=== PATIENT | male | born 1970 | race Caucasian/White ===

== ENCOUNTER → 2018-01-30 | Outpatient (CLI) | payer BC ==
[~2018-01-30] MED LIST: CIPR-225 PO; HYDR-3870 PO; HYDROCODONE; OMEP20TA7 PO; TAMS0.4C98 PO
--- NOTE | 2018-01-30 13:11 | Diagnostic Imaging Report ---
INDICATION: Ureteral calculus. Pain. COMPARISON: None. FINDINGS: Two supine radiographic views of the abdomen were obtained. There is 9 mm extraosseous calcification projecting over the right sacral ala and the expected location of the distal right ureter. Multiple other additional extraosseous calcifications are seen projecting over the lower pelvis bilaterally and may be on the basis of phleboliths, although additional renal collecting system calculi cannot be excluded. Multiple surgical clips are noted in the right lower abdominal quadrant. Small bowel loops are nondistended. There is no large collection of free intraperitoneal air. IMPRESSION: 1. Possible 9 mm calculus within the distal right ureter. 2. Likely additional bilateral pelvic phleboliths. Additional distal ureteral calculi cannot be entirely excluded. Dictated by: Dictated on workstation # [id number]
== END ==
LOC: RAD 11:01
PROVIDERS: ATTEND Urology
DX: N20.1 Calculus of ureter (principal)
CPT/HCPCS: 74018

== ENCOUNTER 2018-01-31 12:09 | Outpatient (CLI) | payer BC ==
[~2018-01-31] VITALS: Ht 193 cm; Wt 131.5 kg
[2018-01-31] MEDS ORDERED: OMEP20TA7 PO (14:08)
[2018-02-01] MEDS ORDERED: HYDROCODONE (10:35)
[2018-02-01] MEDS ORDERED: TAMS0.4C98 PO (12:51)
[2018-02-01] MEDS ORDERED: HYDR-3870 PO (12:51)
[2018-02-01] MEDS ORDERED: CIPR-225 PO (12:51)
== END 2018-01-31 14:13 | disposition home or self-care (01) ==
LOC: PREOP 12:09
PROVIDERS: ATTEND Urology
DX: Z01.818 Encounter for other preprocedural examination (principal)

== ENCOUNTER 2018-02-01 09:17 | Day surgery (SDC) | payer BC ==
[~2018-02-01] VITALS: Ht 193 cm; Wt 131.5 kg
[~2018-02-01 09:17] MED LIST changes: -CIPR-225 PO; -HYDR-3870 PO; -HYDROCODONE; -TAMS0.4C98 PO
[2018-02-01 09:30] VITALS: BP 138/95
[2018-02-01] MEDS ORDERED: LACTATED RINGERS 1,000 ML IV PRN (09:37)
[2018-02-01] MEDS ORDERED: cefTRIAXone FOR IV USE 1,000 MG in NS (IVPB) 50 ML IV ONE (09:45)
[2018-02-01] MEDS ORDERED: CATHETER FLUSH 10 ML SYR IV PRN (10:00)
--- NOTE | 2018-02-01 10:06 | Progress Note-Pre Operative ---
Pre-Operative Progress Note H&P Reviewed The H&P was reviewed, patient examined and no changes noted. Date Seen by Provider: Feb 01, 2018 Time Seen by Provider: 10:05 Date H&P Reviewed: Feb 01, 2018 Time H&P Reviewed: 10:05 Pre-Operative Diagnosis: RT DISTAL URETERAL STONE TERRY DUARTE MD Feb 01, 2018 10:06
--- NOTE | 2018-02-01 10:13 | Progress Note-Post Operative ---
Post-Operative Progess Note Surgeon (s)/Regional Transportation Manager (s) Surgeon TERRY DUARTE MD Regional Transportation Manager: NONE Pre-Operative Diagnosis RT DISTAL URETERAL STONE Post-Operative Diagnosis SAME Procedure & Operative Findings Date of Procedure 02/01/18 Procedure Performed/Findings RT URETEROSCOPY WITH STONE LITHOTRIPSY Anesthesia Type GENERAL Estimated Blood Loss Estimated blood loss (mL): NONE Specimens/Packing Specimens Removed NONE Packing: NONE TERRY DUARTE MD Feb 01, 2018 10:13
--- NOTE | 2018-02-01 10:15 | Discharge Inst-Urology ---
Discharge Inst-Urology Discharge Medications New, Converted, or Re-newed RX: RX on Chart Patient Instructions/Follow Up Plan Please make appointment to been seen in office in 2 weeks. KUB prior to it. KUB on way home Increase oral fluids for 48 hours and then as needed. Diet and Activity as tolerated. If questions or concerns contact your physician Or seek help at emergency department. TERRY DUARTE MD Feb 01, 2018 10:14
--- NOTE | 2018-02-01 10:18 | Diagnostic Imaging Report ---
Indication: Status post lithotripsy on the right. Time of exam: 10:05 AM Correlation is made with prior exam from 01/30/2018. There continues to be a calcific density overlying the right sacral ala measuring approximately 9 mm in size. Numerous pelvic calcifications appear stable. No definite renal calcifications are seen. Bowel gas pattern is unremarkable. There are surgical clips in the right lower quadrant. Impression: Stable calcification projected over the right sacrum when compared with exam 2 days earlier. Dictated by: Dictated on workstation # [id number]
[2018-02-01] MEDS ORDERED: LIDOCAINE PF 2% 5 ML (XYLOCAINE) VIAL ONE (10:27)
[2018-02-01] MEDS ORDERED: MIDAZOLAM 2 MG/2 ML (VERSED) VIAL ONE (10:27)
[2018-02-01] MEDS ORDERED: fentaNYL INJECTION 100 MCG/2 ML AMP ONE (10:27)
[2018-02-01] MEDS ORDERED: proPOfol 200 MG/20 ML (DIPRIVAN) VIAL IV ONE (10:27)
[2018-02-01] MEDS ORDERED: ONDANSETRON 4 MG/2 ML (SDV) Z0FRAN ONE ×2 (10:33→11:48)
[2018-02-01] MEDS ORDERED: DEXAMETHASONE 10 MG/ML (DECADRON) 1 ML VIAL ONE (10:33)
[2018-02-01] MEDS ORDERED: SEVOFLURANE (ULTANE) 15 ML INHAL SOLN ONE ×3 (10:33→10:56)
[2018-02-01] MEDS ORDERED: HYDROCODONE (10:35)
[2018-02-01] MEDS ORDERED: ROCURONIUM 10 MG/ML 5 ML SYRINGE IV ONE (10:49)
[2018-02-01] MEDS ORDERED: NEOSTIGMINE 1 MG/ML 5 ML SYRINGE ONE (11:31)
[2018-02-01] MEDS ORDERED: GLYCOPYRROLATE 0.2 MG/ML (ROBINUL) 2 ML VIAL ONE (11:31)
[2018-02-01] MEDS ORDERED: morphine INJ 10 MG/ML 1ML (SYR OR VIAL) IVP ONE (11:45)
[2018-02-01] MEDS ORDERED: ONDANSETRON 4 MG/2 ML (SDV) Z0FRAN IVP PRN (11:45)
[2018-02-01] MEDS ORDERED: morphine INJ 10 MG/ML 1ML (SYR OR VIAL) ONE (11:48)
[2018-02-01 12:30] VITALS: BP 121/89
[2018-02-01] MEDS ORDERED: TAMS0.4C98 PO (12:51)
[2018-02-01] MEDS ORDERED: CIPR-225 PO (12:51)
[2018-02-01] MEDS ORDERED: HYDR-3870 PO (12:51)
[2018-02-01 13:00] VITALS: BP 130/94
[2018-02-01 13:30] VITALS: BP 132/89
[2018-02-01 13:40] VITALS: BP 132/89
--- NOTE | 2018-02-01 13:45 | Anesthesia-General Post-Op ---
General Patient Condition Mental Status/LOC: Same as Preop Cardiovascular: Satisfactory Nausea/Vomiting: Absent Respiratory: Satisfactory Pain: Controlled Complications: Absent Post Op Complications Complications None Follow Up Care/Instructions Patient Instructions None needed. Anesthesia/Patient Condition Patient Condition Patient is doing well, no complaints, stable vital signs, no apparent adverse anesthesia problems. MODESTA FRAGOSO DO Feb 01, 2018 13:45
--- NOTE | 2018-02-01 13:49 | OPERATIVE REPORT ---
DATE OF SERVICE: 02/01/2018 PREOPERATIVE DIAGNOSIS: Right mid-distal ureteral stone. POSTOPERATIVE DIAGNOSIS: Right mid-distal ureteral stone. OPERATION PERFORMED: Right ureteroscopy with stone lithotripsy. SURGEON: Anshu Duarte MD. ANESTHESIA: General. COMPLICATIONS: None. DESCRIPTION OF PROCEDURE: Under satisfactory general anesthesia, the patient in lithotomy position, genitalia were prepped and draped in the usual sterile fashion. Cystoscope was introduced in the bladder. The anterior urethra was normal. The prostate revealed some enlargement with the median bar. The bladder was inspected, revealed mild trabeculation. Ureteric orifices were normal in shape, size and configuration with clear efflux, sluggish on the right side. Using the foroblique lens, I dilated the right ureteric orifice intramural portion to accommodate a 6.9-Thai semi-rigid ureteroscope. I went up to the stone that was present in the mid ureter, pretty good size stone and started performing lithotripsy first using a power of 5 in order to not to lose the stone, then 12. I had to change the stone the kidney. All the fragments were broken up completely. There were no significant fragments at all. There was no harm to the ureter. I removed the ureteroscope, reinserted the cystoscope to empty the bladder. The patient tolerated the procedure and anesthesia well and was sent to the recovery room in stable condition. Job ID: [id number] DocumentID: [id number] Dictated Date: 02/01/2018 11:28:50 Sausage Canner Date: 02/01/2018 13:48:47 Dictated By: ANSHU DUARTE MD
--- NOTE | 2018-02-01 15:04 | Diagnostic Imaging Report ---
INDICATION: Follow up lithotripsy. COMPARISON: 02/01/2018. FINDINGS: Two supine radiographic views of the abdomen were obtained. The 9 mm calculus identified within the distal right ureter on prior study now appears fragmented. Multiple smaller calcifications are now noted in this same area. Multiple pelvic phleboliths are also again identified. Note is also made of small extraosseous calcifications projecting over the inferior pole of the right kidney measuring approximately 2 mm. Small bowel loops are nondistended. There is no large collection of free intraperitoneal air. Bony structures show no acute abnormalities. IMPRESSION: 1. Interval fragmentation of calculus within the distal right ureter as described above. 2. Possible nonobstructive right renal calculi versus artifact related to superimposition of debris within the bowel. Dictated by: Dictated on workstation # [id number]
== END 2018-02-01 13:55 | disposition home or self-care (01) ==
LOC: SDC 09:17
PROVIDERS: ATTEND Urology
DX: N20.1 Calculus of ureter (principal); K21.9 Gastro-esophageal reflux disease without esophagitis; F17.210 Nicotine dependence, cigarettes, uncomplicated
CPT/HCPCS: 74018; 87081

== ENCOUNTER → 2021-03-30 | Outpatient (CLI) | payer BC ==
[~2021-03-30] MED LIST changes: +CIPR-225 PO; +HYDR-3870 PO; +HYDROCODONE; +TMSL.4C PO
--- NOTE | 2021-03-30 14:49 | Diagnostic Imaging Report ---
INDICATION: Neck pain. EXAMINATION: Cervical spine. AP and lateral views of the cervical spine are obtained. FINDINGS: The odontoid is intact. Atlantoaxial relationship appears normal. Vertebral body heights and alignment appear normal. Intervertebral disc spaces are unremarkable. The uncovertebral joints are well maintained. IMPRESSION: Negative cervical spine. Dictated by: Dictated on workstation # [id number]
== END ==
LOC: RAD FS 13:57
PROVIDERS: ATTEND Family Medicine
DX: M54.2 Cervicalgia (principal)
CPT/HCPCS: 72040

== ENCOUNTER 2021-05-25 13:05 | Emergency (ER) | payer BC ==
[~2021-05-25] VITALS: Ht 190.5 cm; Wt 143.2 kg
[2021-05-25 14:43] LABS: BILIRUBIN,URINE NEGATIVE (NEGATIVE); CLARITY,URINE TURBID; COLOR,URINE RED; GLUCOSE, URINE (UA) NEGATIVE (NEGATIVE); KETONES,URINE TRACE (NEGATIVE); LEUKOCYTE ESTERASE ,URINE 2+ (NEGATIVE); NITRITE,URINE POSITIVE (NEGATIVE); PH,URINE 7.5 (5-9); PROTEIN,URINE 2+ (NEGATIVE)
[2021-05-25 14:57] LABS: BACTERIA,URINE MODERATE /HPF; RBC,URINE TNTC /HPF; WBC,URINE 50-100 /HPF
[2021-05-25] MEDS ORDERED: NS IV 1000 ML 1,000 ML IV STA (15:49)
--- NOTE | 2021-05-25 15:53 | ED GU-Male ---
General Chief Complaint: - Reproductive Stated Complaint: BLOOD IN URINE Nursing Triage Note: pt reports urinary frequency with blood in urine starting at 0900 today Source: patient Exam Limitations: no limitations History of Present Illness Date Seen by Provider: May 25, 2021 Time Seen by Provider: 15:51 Initial Comments Patient is a 51-year-old male who presents the ED with hematuria. Symptoms started around 9:00. Started having burning with urination after urinating. Frequent urination with passing of blood clots. Urine started to improve after the past 2 urinations. History of kidney stones. Denies any specific flank pain,abdominal pain, vomiting, diarrhea ,fever, chills. Denies any scrotum pain, scrotum swelling, headache, dizziness. Denies history of kidney disease Allergies and Home Medications Allergies Coded Allergies: No Known Drug Allergies (Unverified , 01/31/18) Patient Home Medication List Home Medication List Reviewed: Yes Ciprofloxacin HCl (Cipro) 500 Mg Tablet, 500 MG PO BID Prescribed by: KATHERINE BRYAN on 02/01/18 1251 Ciprofloxacin HCl (Cipro) 500 Mg Tablet, 500 MG PO BID Prescribed by: SALMA MCDONNELL on 05/25/21 1658 Hydrocodone/Acetaminophen (Lorcet 5-325 mg Tablet) 1 Each Tablet, 1-2 EACH PO Q6H PRN for PAIN-MODERATE Prescribed by: KATHERINE BRYAN on 02/01/18 1251 Omeprazole (Omeprazole) 20 Mg Tablet.dr, 20 MG PO DAILY, (Reported) Entered as Reported by: JEAN CLAUDE MART on 01/31/18 1408 Tamsulosin HCl (Flomax) 0.4 Mg Cap, 0.4 MG PO DAILY Prescribed by: KATHERINE BRYAN on 02/01/18 1251 Review of Systems Review of Systems Constitutional: No chills, No diaphoresis, No malaise, No weakness EENTM: No blurred vision, No mouth pain, No mouth swelling Respiratory: No cough, No dyspnea on exertion, No orthopnea, No short of breath Gastrointestinal: No abdominal pain, No diarrhea, No nausea, No vomiting Genitourinary: burning, frequency, hematuria Musculoskeletal: No back pain, No joint pain Skin: No change in color, No change in hair/nails All Other Systemes Reviewed Negative Unless Noted: Yes Past Vhgaxtc-Pgryue-Fiwkph Hx Seasonal Allergies Seasonal Allergies: No Past Medical History Appendectomy, Tonsillectomy Reproductive Disorders: No Sexually Transmitted Disease: No HIV/AIDS: No Kidney Stones Loss of Vision: Bilateral Hearing Impairment: Denies Adverse Reaction/Blood Tranf: No (N/A) Physical Exam Vital Signs Vital Signs - First Documented 05/25/21 14:30 Temp 36.4 Pulse 81 Resp 16 B/P (MAP) 137/97 (110) Pulse Ox 98 O2 Delivery Room Air Capillary Refill : Less Than 3 Seconds Height, Weight, BMI Height: 6'4.00" Weight: 290lbs. 0.0oz. [id number]; 39.00 BMI Method: General Appearance: WD/WN, no apparent distress HEENT: PERRL/EOMI, normal ENT inspection, TMs normal, pharynx normal Neck: non-tender, full range of motion, supple, normal inspection Cardiovascular: regular rate, rhythm, no edema, no gallop, no JVD Respiratory: chest non-tender, lungs clear, normal breath sounds, no respiratory distress, no accessory muscle use Gastrointestinal: normal bowel sounds, non tender, soft, no organomegaly Back: normal inspection, no CVA tenderness Extremities: normal range of motion, non-tender, normal inspection, no pedal edema, no calf tenderness Neurologic/Psychiatric: special loan officer II-XII nml as tested, no motor/sensory deficits, al ert, normal mood/affect Progress/Results/Core Measures Suspected Sepsis SIRS Temperature: Pulse: 81 Respiratory Rate: 16 Laboratory Tests 05/25/21 15:58: White Blood Count 15.1H Blood Pressure 137 /97 Mean: 110 Laboratory Tests 05/25/21 15:58: Creatinine 1.11, Platelet Count 261, Total Bilirubin 0.8 Results/Orders Lab Results Laboratory Tests Test 05/25/21 14:30 05/25/21 15:58 Range/Units Urine Color RED H Urine Clarity TURBID Urine pH 7.5 5-9 Urine Specific [place] 1.025 H 1.016-1.022 Urine Protein 2+ H NEGATIVE Urine Glucose (UA) NEGATIVE NEGATIVE Urine Ketones TRACE H NEGATIVE Urine Nitrite POSITIVE H NEGATIVE Urine Bilirubin NEGATIVE NEGATIVE Urine Urobilinogen 1.0 < = 1.0 MG/DL Urine Leukocyte Esterase 2+ H NEGATIVE Urine RBC (Auto) 3+ H NEGATIVE Urine RBC TNTC H /HPF Urine WBC 50-100 H /HPF Urine Crystals NONE /LPF Urine Bacteria MODERATE H /HPF Urine Casts NONE /LPF Urine Mucus NEGATIVE /LPF Urine Culture Indicated YES White Blood Count 15.1 H 4.3-11.0 10^3/uL Red Blood Count 5.26 4.30-5.52 10^6/uL Hemoglobin 16.3 13.3-17.7 g/dL Hematocrit 48 40-54 % Mean Corpuscular Volume 91 80-99 fL Mean Corpuscular Hemoglobin 31 25-34 pg Mean Corpuscular Hemoglobin Concent 34 32-36 g/dL Red Cell Distribution Width 13.8 10.0-14.5 % Platelet Count 261 130-400 10^3/uL Mean Platelet Volume 9.7 9.0-12.2 fL Immature Granulocyte % (Auto) 0 % Neutrophils (%) (Auto) 75 42-75 % Lymphocytes (%) (Auto) 18 12-44 % Monocytes (%) (Auto) 6 0-12 % Eosinophils (%) (Auto) 0 0-10 % Basophils (%) (Auto) 0 0-10 % Neutrophils # (Auto) 11.3 H 1.8-7.8 X 10^3 Lymphocytes # (Auto) 2.7 1.0-4.0 X 10^3 Monocytes # (Auto) 1.0 0.0-1.0 X 10^3 Eosinophils # (Auto) 0.1 0.0-0.3 10^3/uL Basophils # (Auto) 0.0 0.0-0.1 10^3/uL Immature Granulocyte # (Auto) 0.0 0.0-0.1 10^3/uL Neutrophils % (Manual) 76 % Lymphocytes % (Manual) 6 % Monocytes % (Manual) 3 % Eosinophils % (Manual) 0 % Basophils % (Manual) 0 % Band Neutrophils 0 % Reactive Lymphocytes 15 % Blood Morphology Comment NORMAL Sodium Level 135 135-145 MMOL/L Potassium Level 3.9 3.6-5.0 MMOL/L Chloride Level 102 98-107 MMOL/L Carbon Dioxide Level 24 21-32 MMOL/L Anion Gap 9 5-14 MMOL/L Blood Urea Nitrogen 11 7-18 MG/DL Creatinine 1.11 0.60-1.30 MG/DL Estimat Glomerular Filtration Rate 81 BUN/Creatinine Ratio 10 Glucose Level 105 70-105 MG/DL Calcium Level 9.2 8.5-10.1 MG/DL Corrected Calcium 9.0 8.5-10.1 MG/DL Total Bilirubin 0.8 0.1-1.0 MG/DL Aspartate Amino Transf (AST/SGOT) 20 5-34 U/L Alanine Aminotransferase (ALT/SGPT) 27 0-55 U/L Alkaline Phosphatase 74 40-136 U/L Total Protein 7.1 6.4-8.2 GM/DL Albumin 4.2 3.2-4.5 GM/DL Lipase 15 8-78 U/L My Orders Orders - GREY ORO Ua Culture If Indicated (05/25/21 13:42) Urine Culture (05/25/21 14:30) Cbc With Automated Diff (05/25/21 15:49) Comprehensive Metabolic Panel (05/25/21 15:49) Lipase (05/25/21 15:49) Ct Abdomen/Pelvis Wo (05/25/21 15:49) Ns Iv 1000 Ml (Sodium Chloride 0.9%) (05/25/21 15:49) Manual Differential (05/25/21 15:58) Ceftriaxone 1 Gm Pre-Mix (Rocephin 1 Gm (05/25/21 16:16) Vital Signs/I&O 05/25/21 14:30 Temp 36.4 Pulse 81 Resp 16 B/P (MAP) 137/97 (110) Pulse Ox 98 O2 Delivery Room Air Capillary Refill : Less Than 3 Seconds Blood Pressure Mean: 110 Departure Communication (PCP) Slight elevated white blood count. Vital signs stable. Did not meet SIRS criteria. Urinalysis concerning for UTI. Cultures pending. Was given dose of Rocephin and liter fluid. CT abd pelvis negative for nephrolithiasis. No evidence of nephric stranding, ureterolithiasis, obstruction, colitis, mass. Concerning for UTI. Patient was given a dose of Rocephin will discharge with Cipro. not concern for sexual transmitted infection. Patient has no current pain. He states his urine has improved. Denies passing current clots. Patient in no acute distress. Will discharge with Cipro with follow-up with PCP in 2 to 3 days for reevaluation. If any worsening symptoms return back to ED. Impression Primary Impression: Urinary tract infection Disposition: HOME, SELF-CARE Condition: Stable Departure-Patient Inst. Decision time for Depature: 16:57 Referrals: SELFSILAS MD (PCP/Family) Primary Care Physician Patient Instructions: Urinary Tract Infection, Adult (DC) Add. Discharge Instructions: Recheck with your primary care physician in 5 to 6 days with urinalysis. If worsening symptoms return back to ED. All discharge instructions reviewed with patient and/or family. Voiced understanding. Scripts Ciprofloxacin HCl (Cipro) 500 Mg Tablet 500 MG PO BID for 10 Days, #20 TAB Prov: GREY ORO 05/25/21 GREY ORO May 25, 2021 15:53
[2021-05-25 16:09] LABS: BASOPHILS % (AUTO) 0 % (0-10); EOSINOPHILS # (AUTO) 0.1 10^3/uL (0.0-0.3); EOSINOPHILS % (AUTO) 0 % (0-10); HEMATOCRIT 48 % (40-54); HEMOGLOBIN 16.3 g/dL (13.3-17.7); LYMPHOCYTES # (AUTO) 2.7 X 10^3 (1.0-4.0); LYMPHOCYTES % (AUTO) 18 % (12-44); MEAN CORPUSCULAR HEMOGLOBIN 31 pg (25-34); MEAN CORPUSCULAR HGB CONC 34 g/dL (32-36); MEAN CORPUSCULAR VOLUME 91 fL (80-99); MEAN PLATELET VOLUME 9.7 fL (9.0-12.2); MONOCYTES % (AUTO) 6 % (0-12); NEUTROPHILS # (AUTO) 11.3 X 10^3 (1.8-7.8); NEUTROPHILS % (AUTO) 75 % (42-75); PLATELET COUNT 261 10^3/uL (130-400); WHITE BLOOD COUNT 15.1 10^3/uL (4.3-11.0)
[2021-05-25] MEDS ORDERED: cefTRIAXone 1 GM PRE-MIX 50 ML IV STA (16:16)
--- NOTE | 2021-05-25 16:20 | Diagnostic Imaging Report ---
CT ABDOMEN/PELVIS WO TECHNIQUE: Unenhanced CT imaging of the abdomen and pelvis was performed. 2-D reformats are created and submitted for interpretation. Automatic exposure controls were utilized to optimize patient dose. INDICATION: Bilateral flank pain. Blood in urine COMPARISON: None available. FINDINGS: Evaluation of the abdominal viscera is mildly limited without contrast. Lower chest: Bilateral lower lobe 3 mm pulmonary nodules are below size threshold for part follow-up. Peritoneum: No free intraperitoneal air or fluid. Liver and biliary system: Unenhanced liver is normal. The gallbladder is normal. No biliary duct dilation. Spleen and Pancreas: Spleen is normal. Unenhanced pancreas is grossly normal. Adrenals: Normal. tract: No renal or ureteral calculi. No obstructive uropathy. Prostate is not enlarged. Urinary bladder is normally filled without wall thickening. GI tract: Stomach is decompressed. No bowel obstruction. No pericolonic inflammatory changes. Appendectomy. Vasculature and Lymph nodes: Normal caliber aorta. No abdominal or pelvic lymphadenopathy. Musculoskeletal: No concerning osseous lesion. Small fat-containing indirect right inguinal hernia. IMPRESSION: 1. No urinary tract calculi or obstructive uropathy. Dictated by: Dictated on workstation # [id number]
[2021-05-25 16:21] LABS: BAND NEUTROPHILS 0 %; BASOPHILS % (MANUAL) 0 %; EOSINOPHILS % (MANUAL) 0 %; LYMPHOCYTES % (MANUAL) 6 %; MONOCYTES % (MANUAL) 3 %; NEUTROPHILS % (MANUAL) 76 %; REACTIVE LYMPHOCYTES 15 %
[2021-05-25 16:22] LABS: RBC MORPH NORMAL
[2021-05-25 16:25] LABS: ALBUMIN 4.2 GM/DL (3.2-4.5); BILIRUBIN,TOTAL 0.8 MG/DL (0.1-1.0); CALCIUM 9.2 MG/DL (8.5-10.1); CREATININE SERUM 1.11 MG/DL (0.60-1.30); POTASSIUM 3.9 MMOL/L (3.6-5.0); TOTAL PROTEIN 7.1 GM/DL (6.4-8.2)
[2021-05-25] MEDS ORDERED: CIPR-225 PO (16:58)
[2021-05-25 17:30] VITALS: BP 137/99
== END 2021-05-25 17:33 | disposition home or self-care (01) ==
LOC: EDUNIT# 13:05 → ER 13:06
DX: N39.0 Urinary tract infection, site not specified (principal)
CPT/HCPCS: 36415; 74176; 80053; 81000; 83690; 85007; 85027; 87077; 87088; 87186

== ENCOUNTER 2022-07-03 09:54 | Emergency (ER) | payer BC ==
[~2022-07-03] VITALS: Ht 190.5 cm; Wt 142.8 kg
[~2022-07-03 09:54] MED LIST changes: +OMEP20TA56 PO; -OMEP20TA7 PO
[2022-07-03 10:11] LABS: BASOPHILS % (AUTO) 0 % (0-10); EOSINOPHILS # (AUTO) 0.1 10^3/uL (0.0-0.3); EOSINOPHILS % (AUTO) 0 % (0-10); HEMATOCRIT 52 % (40-54); HEMOGLOBIN 18.1 g/dL (13.3-17.7); LYMPHOCYTES # (AUTO) 2.6 10^3/uL (1.0-4.0); LYMPHOCYTES % (AUTO) 23 % (12-44); MEAN CORPUSCULAR HEMOGLOBIN 31 pg (25-34); MEAN CORPUSCULAR HGB CONC 35 g/dL (32-36); MEAN CORPUSCULAR VOLUME 89 fL (80-99); MEAN PLATELET VOLUME 10.2 fL (9.0-12.2); MONOCYTES # (AUTO) 0.6 10^3/uL (0.0-1.0); MONOCYTES % (AUTO) 5 % (0-12); NEUTROPHILS # (AUTO) 7.9 10^3/uL (1.8-7.8); NEUTROPHILS % (AUTO) 71 % (42-75); PLATELET COUNT 272 10^3/uL (130-400); WHITE BLOOD COUNT 11.2 10^3/uL (4.3-11.0)
[2022-07-03] MEDS ORDERED: ASPIRIN 81 MG CHEW (CHILDREN'S ASA) PO ONE (10:15)
[2022-07-03] MEDS ORDERED: NITROGLYCERIN 0.4 MG SL TABS BTL 25'S SL PRN (10:15)
[2022-07-03 10:22] LABS: ALBUMIN 4.5 GM/DL (3.2-4.5); INR 0.9 (0.8-1.4); POTASSIUM 4.3 MMOL/L (3.6-5.0); PROTHROMBIN TIME PATIENT 13.1 SEC (12.2-14.7)
[2022-07-03 10:23] LABS: CALCIUM 9.5 MG/DL (8.5-10.1)
[2022-07-03 10:25] LABS: TOTAL PROTEIN 7.4 GM/DL (6.4-8.2)
[2022-07-03 10:27] LABS: BILIRUBIN,TOTAL 0.4 MG/DL (0.1-1.0)
[2022-07-03 10:28] LABS: CREATININE SERUM 1.43 MG/DL (0.60-1.30)
[2022-07-03 10:31] LABS: MAGNESIUM 2.5 MG/DL (1.6-2.4)
--- NOTE | 2022-07-03 10:31 | Diagnostic Imaging Report ---
INDICATION: Chest pain. FINDINGS: There is cardiomegaly. There is some venous congestion. No pleural effusion or pneumothorax. Mediastinum is unremarkable. IMPRESSION: Cardiomegaly and mild central pulmonary venous congestion. Dictated by: Dictated on workstation # [id number]
--- NOTE | 2022-07-03 12:12 | ED Chest Pain ---
General Chief Complaint: Dizziness/Syncope Stated Complaint: CHEST PAIN Nursing Triage Note: PT AMB TO [facility] 5 WITH COMPLAINT OF DIZZINESS, LIGHTHEADED, NOT FEELING RIGHT. DENIES CP. BUT IS HAVING SOA. STATES SYMPTOMS STARTED WHEN HE WOKE UP. Source: patient, family Exam Limitations: no limitations History of Present Illness Date Seen by Provider: July 03, 2022 Time Seen by Provider: 10:00 Initial Comments This 52-year-old gentleman presents to the emergency room with complaints of lightheadedness, shortness of breath, dysphoric sensation, and a vague chest pressure that began while he was at breakfast. He feels like he could "pass out." He has not experienced any prior episodes. His chest discomfort is described as a very vague pressure but not a pain by his description. He denies any fever, cough, nausea, diarrhea, or other acute symptoms. His significant other reports he was pale while at breakfast and seemed "out of it." He appears neurologically intact during assessment. He has hypertension without any other known cardiopulmonary problems. He recently traveled to [place] to and back by flight. He denies any unusual activity or consumed substances. He drinks 2-3 mixed drinks daily and smokes. He has not had any alcohol yet today. He normally does not drink alcohol in the morning hours. Dr. Hein is his primary care provider. Allergies and Home Medications Allergies Coded Allergies: No Known Drug Allergies (Unverified , 01/31/18) Patient Home Medication List Home Medication List Reviewed: Yes Ciprofloxacin HCl (Cipro) 500 Mg Tablet, 500 MG PO BID Prescribed by: KATHERINE BRYAN on 02/01/18 1251 Ciprofloxacin HCl (Cipro) 500 Mg Tablet, 500 MG PO BID Prescribed by: SALMA MCDONNELL on 05/25/21 1658 Hydrocodone/Acetaminophen (Lorcet 5-325 mg Tablet) 1 Each Tablet, 1-2 EACH PO Q6H PRN for PAIN-MODERATE Prescribed by: KATHERINE BRYAN on 02/01/18 1251 Omeprazole (Omeprazole) 20 Mg Venancio.dr 20 MG PO DAILY, (Reported) Entered as Reported by: JEAN CLAUDE MART on 01/31/18 1408 Tamsulosin HCl (Flomax) 0.4 Mg Cap, 0.4 MG PO DAILY Prescribed by: KATHERINE BRYAN on 02/01/18 1251 Review of Systems Review of Systems Constitutional: no symptoms reported EENTM: No Symptoms Reported Respiratory: See HPI Cardiovascular: See HPI Gastrointestinal: No Symptoms Reported Genitourinary: No Symptoms Reported Musculoskeletal: no symptoms reported Skin: no symptoms reported Psychiatric/Neurological: See HPI Endocrine: No Symptoms Reported Hematologic/Lymphatic: No Symptoms Reported Past Sxpbliu-Lbdcvy-[id number] Hx Patient Social History Tobacco Use?: Yes Tobacco type used: Cigarettes Smoking Status: Current Everyday Smoker Use of E-Cig and/or Vaping dev: No Substance use?: No Alcohol Use?: Yes Alcohol Frequency: Daily Pt feels they are or have been: No Seasonal Allergies Seasonal Allergies: No Past Medical History Surgeries: Yes Appendectomy, Tonsillectomy Respiratory: No Cardiac: Yes Hypertension Neurological: No Reproductive Disorders: No Sexually Transmitted Disease: No HIV/AIDS: No Genitourinary: Yes Kidney Stones Gastrointestinal: No Musculoskeletal: No Endocrine: No HEENT: No Loss of Vision: Bilateral Hearing Impairment: Denies Cancer: No Psychosocial: No Adverse Reaction/Blood Tranf: No (N/A) Physical Exam Vital Signs Vital Signs - First Documented 07/03/22 09:58 Pulse 91 Resp 14 B/P (MAP) 159/108 (125) Pulse Ox 98 O2 Delivery Room Air Capillary Refill : Less Than 3 Seconds Height, Weight, BMI Height: 6'4.00" Weight: 290lbs. 0.0oz. 131.371929qa; 39.00 BMI Method: General Appearance: WD/WN, Obese HEENT: PERRL/EOMI, TMs Normal, Normal ENT Inspection, Pharynx Normal Neck: Normal Inspection; No Carotid Bruit, No JVD Respiratory: Chest Non Tender, Lungs Clear, Normal Breath Sounds, No Accessory Muscle Use Cardiovascular: Regular Rate, Rhythm, No Edema, No Murmur, Normal Peripheral Pulses Gastrointestinal: Normal Bowel Sounds, Non Tender, Soft; No Distended Extremity: Normal Inspection, Non Tender, No Pedal Edema Neurologic/Psychiatric: Oriented x3, No Motor/Sensory Deficits, Normal Mood/Affect Skin: Normal Color, Warm/Dry Progress/Results/Core Measures Results/Orders Lab Results Laboratory Tests Test 07/03/22 10:04 07/03/22 10:12 07/03/22 13:45 07/03/22 13:53 Range/Units White Blood Count 11.2 H 4.3-11.0 10^3/uL Red Blood Count 5.85 H 4.30-5.52 10^6/uL Hemoglobin 18.1 H 13.3-17.7 g/dL Hematocrit 52 40-54 % Mean Corpuscular Volume 89 80-99 fL Mean Corpuscular Hemoglobin 31 25-34 pg Mean Corpuscular Hemoglobin Concent 35 32-36 g/dL Red Cell Distribution Width 13.4 10.0-14.5 % Platelet Count 272 130-400 10^3/uL Mean Platelet Volume 10.2 9.0-12.2 fL Immature Granulocyte % (Auto) 0 % Neutrophils (%) (Auto) 71 42-75 % Lymphocytes (%) (Auto) 23 12-44 % Monocytes (%) (Auto) 5 0-12 % Eosinophils (%) (Auto) 0 0-10 % Basophils (%) (Auto) 0 0-10 % Neutrophils # (Auto) 7.9 H 1.8-7.8 10^3/uL Lymphocytes # (Auto) 2.6 1.0-4.0 10^3/uL Monocytes # (Auto) 0.6 0.0-1.0 10^3/uL Eosinophils # (Auto) 0.1 0.0-0.3 10^3/uL Basophils # (Auto) 0.0 0.0-0.1 10^3/uL Immature Granulocyte # (Auto) 0.0 0.0-0.1 10^3/uL Prothrombin Time 13.1 12.2-14.7 SEC INR Comment 0.9 0.8-1.4 Activated Partial Thromboplast Time 30 24-35 SEC D-Dimer 0.31 0.00-0.49 UG/ML Sodium Level 139 135-145 MMOL/L Potassium Level 4.3 3.6-5.0 MMOL/L Chloride Level 106 98-107 MMOL/L Carbon Dioxide Level 21 21-32 MMOL/L Anion Gap 12 5-14 MMOL/L Blood Urea Nitrogen 16 7-18 MG/DL Creatinine 1.43 H 0.60-1.30 MG/DL Estimat Glomerular Filtration Rate 60 BUN/Creatinine Ratio 11 Glucose Level 167 H 70-105 MG/DL Calcium Level 9.5 8.5-10.1 MG/DL Corrected Calcium 9.1 8.5-10.1 MG/DL Magnesium Level 2.5 H 1.6-2.4 MG/DL Total Bilirubin 0.4 0.1-1.0 MG/DL Aspartate Amino Transf (AST/SGOT) 16 5-34 U/L Alanine Aminotransferase (ALT/SGPT) 23 0-55 U/L Alkaline Phosphatase 85 40-136 U/L Myoglobin 39.4 10.0-92.0 NG/ML Troponin I < 0.028 < 0.028 <0.028 NG/ML C-Reactive Protein High Sensitivity 0.20 0.00-0.50 MG/DL B-Type Natriuretic Peptide < 10.0 <100.0 PG/ML Total Protein 7.4 6.4-8.2 GM/DL Albumin 4.5 3.2-4.5 GM/DL Serum Alcohol < 10 <10 MG/DL Influenza Type A (RT-PCR) Not Detected Not Detecte Influenza Type B (RT-PCR) Not Detected Not Detecte SARS-CoV-2 RNA (RT-PCR) Not Detected Not Detecte Urine Color YELLOW Urine Clarity SL CLOUDY Urine pH 7.5 5-9 Urine Specific [place] 1.010 L 1.016-1.022 Urine Protein NEGATIVE NEGATIVE Urine Glucose (UA) NEGATIVE NEGATIVE Urine Ketones TRACE H NEGATIVE Urine Nitrite NEGATIVE NEGATIVE Urine Bilirubin NEGATIVE NEGATIVE Urine Urobilinogen 1.0 < = 1.0 MG/DL Urine Leukocyte Esterase NEGATIVE NEGATIVE Urine RBC (Auto) NEGATIVE NEGATIVE Urine RBC NONE /HPF Urine WBC RARE /HPF Urine Squamous Epithelial Cells RARE /HPF Urine Crystals PRESENT H /LPF Urine Amorphous Sediment MOD ARCHANA PHOSPHATE H /LPF Urine Bacteria NEGATIVE /HPF Urine Casts NONE /LPF Urine Mucus SMALL H /LPF Urine Culture Indicated NO My Orders Orders - JAEL KLINE MD Ekg Tracing (07/03/22 09:56) Cbc With Automated Diff (07/03/22 10:01) Magnesium (07/03/22 10:01) Chest 1 View, Ap/Pa Only (07/03/22 10:01) Comprehensive Metabolic Panel (07/03/22 10:01) Myoglobin Serum (07/03/22 10:01) Protime With Inr (07/03/22 10:01) Partial Thromboplastin Time (07/03/22 10:01) O2 (07/03/22 10:01) Monitor-Rhythm Ecg Trace Only (07/03/22 10:01) Lipid Panel (07/04/22 06:00) Ed Iv/Invasive Line Start (07/03/22 10:01) Troponin I Trang (07/03/22 10:01) Nitroglycerin 0.4 Mg Btl 25's (Nitrostat (07/03/22 10:15) Aspirin Chewable Tablet (Baby Aspirin Ch (07/03/22 10:15) Covid 19 Inhouse Test (07/03/22 10:10) Influenza A And B By Pcr (07/03/22 10:10) Fibrin Degradation Products (07/03/22 10:10) Lactated Ringers (Lr 1000 Ml Iv Solution (07/03/22 12:15) Alcohol (07/03/22 12:11) Troponin I Trang (07/03/22 13:45) Bnp Trang (07/03/22 12:46) Hs C Reactive Protein (07/03/22 12:46) Ua Culture If Indicated (07/03/22 13:53) Medications Given in ED Current Medications Medications Dose Ordered Sig/Haylee Route Start Time Stop Time Status Last Admin Dose Admin Aspirin 324 mg ONCE ONCE PO 07/03/22 10:15 07/03/22 10:16 DC 07/03/22 10:14 324 MG Lactated Ringer's 1,000 ml @ 0 mls/hr Q0M ONCE IV 07/03/22 12:15 07/03/22 12:16 DC 07/03/22 12:27 1,000 MLS/HR Nitroglycerin 0.4 mg UD PRN SL 07/03/22 10:15 07/03/22 10:16 0.4 MG Vital Signs/I&O 07/03/22 09:58 Pulse 91 Resp 14 B/P (MAP) 159/108 (125) Pulse Ox 98 O2 Delivery Room Air Blood Pressure Mean: 125 Progress Progress Note : Progress Note Initial cardiopulmonary work-up was unremarkable. Labs were reviewed and interpreted in their entirety including CBC, CMP, magnesium, troponin, myoglobin, D-dimer, CRP, BNP, and swab for flu and COVID. Creatinine and glucose were minimally elevated. Otherwise these labs were unremarkable. EKG demonstrated no ischemia by my interpretation. Chest x-ray report was reviewed. The radiologist interpreted cardiomegaly which was not appreciated by my interpretation. There was some subtle indication of pulmonary edema which was noted on my interpretation. However, BNP was normal. Perhaps this patient has pneumonitis caused by viral illness. There was a lymphocytic shift on his WBC differential which would correlate with viral illness as well. A repeat trop onin 4 hours after onset of symptoms was also negative. Patient's symptoms resolved without any particular treatment. He did receive a liter of IV hydration. See discharge instructions for further discussion. I advised the patient pursue further evaluation by his primary care provider and possibly discuss cardiac monitoring. I have also advised a repeat chest x-ray in a couple of weeks to ensure resolution of the appearance of edema. Initial ECG Impression Date: July 03, 2022 Initial ECG Impression Time: 10:06 Initial ECG Rate: 85 Initial ECG Rhythm: Normal Sinus Initial ECG Intervals: Normal Initial ECG Impression: Normal Comment Normal sinus rhythm with no ST elevation or depression. No abnormal intervals or axis deviation. Diagnostic Imaging Diagonstic Imaging: Xray Plain Films/CT/US/NM/MRI: chest Comments Chest x-ray reviewed by me and report reviewed. See report below: NAME: VICENTE ABREU [facility] REC#: [id number] PT STATUS: REG ER : 1970 PHYSICIAN: JAEL KLINE MD ADMIT DATE: 07/03/22/ER Signed Date of Exam:07/03/22 CHEST 1 VIEW, AP/PA ONLY INDICATION: Chest pain. FINDINGS: There is cardiomegaly. There is some venous congestion. No pleural effusion or pneumothorax. Mediastinum is unremarkable. IMPRESSION: Cardiomegaly and mild central pulmonary venous congestion. Dictated by: Dictated on workstation # [id number] Dict: 07/03/22 1018 Trans: 07/03/22 1128 CVB [id number] Interpreted by: SHOAIB HARO MD Electronically signed by: SHOAIB HARO MD 07/03/22 1128 Departure Impression Primary Impression: Chest discomfort Additional Impressions: Lightheadedness Abnormal chest x-ray Disposition: 01 HOME, SELF-CARE Condition: Improved Departure-Patient Inst. Decision time for Depature: 14:26 Referrals: SELFSILAS MD (PCP/Family) Primary Care Physician Patient Instructions: Chest Pain Add. Discharge Instructions: Your heart work-up in the emergency room which included heart markers in your blood work and an EKG was unremarkable. The exact cause of your symptoms is uncertain. Your symptoms may be related to viral illness. Please discuss further work-up with Dr. HEIN at a follow-up appointment. If abnormal heart rhythm is a concern, an outpatient ekg monitor tech can be ordered to investigate your heart rhythm further. Take aspirin 81 mg daily until you have an opportunity to discuss this further with Dr. Hein. Drink plenty of clear liquids to stay well-hydrated. The appearance of your chest x-ray was abnormal. However, there were no other indications of pneumonia such as fever or abnormal inflammatory markers. It is possible this abnormal appearance is due to a viral illness. However, there are some chronic lung conditions that can show a similar appearance. Please discuss this chest x-ray with Dr. Hein. I am recommending a repeat chest x-ray in a couple of weeks to ensure resolution of this appearance. Work toward quitting smoking as rapidly as possible. Please call Tuesday morning to schedule your follow-up appointment. In the meantime, return to the emergency room if you have worsening symptoms. All discharge instructions reviewed with patient and/or family. Voiced understanding. Copy Copies To 1: SILAS HEIN MD, JOSHUA T MD July 03, 2022 12:12
[2022-07-03] MEDS ORDERED: LACTATED RINGERS 1,000 ML IV ONE (12:15)
[2022-07-03 14:04] LABS: BILIRUBIN,URINE NEGATIVE (NEGATIVE); CLARITY,URINE SL CLOUDY; COLOR,URINE YELLOW; GLUCOSE, URINE (UA) NEGATIVE (NEGATIVE); KETONES,URINE TRACE (NEGATIVE); LEUKOCYTE ESTERASE ,URINE NEGATIVE (NEGATIVE); NITRITE,URINE NEGATIVE (NEGATIVE); PH,URINE 7.5 (5-9); PROTEIN,URINE NEGATIVE (NEGATIVE)
[2022-07-03 14:17] LABS: WBC,URINE RARE /HPF
[2022-07-03 14:18] LABS: AMORPHOUS SEDIMENT,UR MOD AMOR PHOSPHATE /LPF; BACTERIA,URINE NEGATIVE /HPF; SQUAMOUS EPITHELIAL CELL,UR RARE /HPF
[2022-07-03 14:43] VITALS: BP 139/103
== END 2022-07-03 14:43 | disposition home or self-care (01) ==
LOC: EDUNIT# 09:54 → ER 09:56
DX: J81.1 Chronic pulmonary edema (principal); R42 Dizziness and giddiness; R93.89 Abnormal findings on diagnostic imaging of other specified body structures; E66.9 Obesity, unspecified; F17.210 Nicotine dependence, cigarettes, uncomplicated; Z68.39 Body mass index [BMI] 39.0-39.9, adult; Z20.822 Contact with and (suspected) exposure to COVID-19
CPT/HCPCS: 71045; 80053; 81000; 83735; 83874; 83880; 84484; 85025; 85379; 85610; 85730; 86141; 87636; 93041; 99284; G0480; 36415; 80320; 93005

== ENCOUNTER 2022-07-19 12:48 | Outpatient (CLI) | payer BC | END 2022-07-19 13:15 | LOC: SLEEP 12:48 | PROVIDERS: ATTEND Internal Medicine Cardiovascular Disease | DX: G47.33 Obstructive sleep apnea (adult) (pediatric) (principal); G47.36 Sleep related hypoventilation in conditions classified elsewhere; I10 Essential (primary) hypertension; R06.83 Snoring | CPT/HCPCS: G0399 ==

== ENCOUNTER → 2022-07-21 | Outpatient (CLI) | payer BC | LOC: CARD 07:48 | PROVIDERS: ATTEND Internal Medicine Cardiovascular Disease | DX: I11.9 Hypertensive heart disease without heart failure (principal); I25.10 Atherosclerotic heart disease of native coronary artery without angina pectoris | CPT/HCPCS: 93306 ==

== ENCOUNTER → 2022-08-04 | Outpatient (CLI) | payer BC ==
[~2022-08-04] MED LIST changes: +CATHETER FLUSH 10 ML SYR IVP PRN
[2022-08-04 13:11] VITALS: BP 133/92
--- NOTE | 2022-08-04 15:41 | Cardiology Stress Test Report ---
Stress Test Report Date of Procedure/Referring: Date of Procedure: Aug 04, 2022 PCP Madhu Hein MD Admitting Physician Admitting Physician: Attending Physician: Osbaldo Almonte MD Baseline Heart Rate: 69 Baseline Blood Pressure: Blood Pressure Systolic: 133 Blood Pressure Diastolic: 92 Vital Signs Date Time Temp Pulse Resp B/P (MAP) Pulse Ox O2 Delivery O2 Flow Rate FiO2 08/04/22 13:11 69 133/92 (106) Baseline Vital Signs Vital Signs Date Time Temp Pulse Resp B/P (MAP) Pulse Ox O2 Delivery O2 Flow Rate FiO2 08/04/22 13:11 69 133/92 (106) Baseline EKG: Baseline EKG: NSR Summary: After explaining the procedure and details to the patient, he signed the consent and was brought to the stress nuclear laboratory. Patient exercised on standard Marcelino protocol, EKG, heart rate and blood pressure were monitored continuously, resting and stress doses of radio tracer were injected, imaging was acquired and reviewed in the short axis, horizontal long axis and vertical long axis views Patient was able to exercise for a total of 7 minutes on Marcelino protocol, METs 8.5 Maximum heart rate 152 Maximum blood pressure 215/107 Stress EKG, Minimal nondiagnostic changes Recovery EKG, Return to baseline TID: 0.97 SSS: 4 SDS: 4 EF: 63 Conclusion: Good exercise tolerance for 7 minutes on standard Marcelino protocol, 8.5 METS achieving 89% of maximal expected heart rate Appropriate heart rate response to exercise with hypertensive response to exercise with peak blood pressure 215/107 return to baseline during recovery Nondiagnostic EKG changes with exercise return to baseline during recovery Motion artifact with no significant ischemia or infarction noted on SPECT images Normal left ventricular size, ejection fraction 63% Copy Copies To 1: MADHU HEIN MD, BASHAR J MD Aug 04, 2022 15:41
== END ==
LOC: CARD 12:00
PROVIDERS: ATTEND Internal Medicine Cardiovascular Disease
DX: I10 Essential (primary) hypertension (principal); I25.10 Atherosclerotic heart disease of native coronary artery without angina pectoris
CPT/HCPCS: 78452; 93017; A9502